=== PATIENT | female | born 1940 | race American Indian/Alaskan Native ===

== ENCOUNTER 2020-08-25 23:12 | Emergency (ER) | payer MEDICARE ==
[2020-08-25] MEDS ORDERED: ASPIRIN 325 MG TAB PO ONE (23:47)
--- NOTE | 2020-08-26 00:13 | XRay Report ---
CHEST 1 VIEW INDICATION / CLINICAL INFORMATION: Chest Pain. COMPARISON: 09/29/2012 FINDINGS: SUPPORT DEVICES: None. HEART / MEDIASTINUM: No significant abnormality. LUNGS / PLEURA: No significant pulmonary or pleural abnormality. No pneumothorax. ADDITIONAL FINDINGS: No significant additional findings. IMPRESSION: 1. No acute findings. No interval change. Signer Name: Fior Marcelino MD Signed: 08/26/2020 12:09 AM Workstation Name: [id number]
[2020-08-26 00:43] LABS: Basophils % (Auto) 0.1 % (0.0-1.8); Hematocrit 36.6 % (30.3-42.9); Hemoglobin 12.1 gm/dl (10.1-14.3); Lymphocytes # (Auto) 0.5 K/mm3 (1.2-5.4); Lymphocytes % (Auto) 4.5 % (13.4-35.0); Mean Corpuscular HGB Conc 33 % (30-34); Mean Corpuscular Volume 81 fl (79-97); Monocytes # (Auto) 0.5 K/mm3 (0.0-0.8); Monocytes % (Auto) 5.5 % (0.0-7.3); Platelet Count 235 K/mm3 (140-440); Red Cell Distribution Width 15.8 % (13.2-15.2)
[2020-08-26 01:03] LABS: BUN/Creatinine Ratio 24; Blood Urea Nitrogen 31 mg/dL (7-17); Calcium 9.3 mg/dL (8.4-10.2); Hemolysis Index 6
--- NOTE | 2020-08-26 02:21 | Emergency Department Report ---
ED Asthma HPI - General Chief Complaint: Chest Pain Stated Complaint: CHEST PAIN PUI?: No Time Seen by Provider: 08/26/20 02:11 Source: patient Mode of arrival: Ambulatory Limitations: No Limitations - History of Present Illness Initial Comments: CC: I could not breathe. HPI: Mrs. Temple is a 80 yo female with hx of asthma, GERD, HTN who presents with trouble breathing for one week. Seen several times by her PCP Dr. Ryan Rascon. She takes albuterol nebs at home. She recently was prescribed ?Advair, Prednisone, HCTZ, azithromycin. She has congestion center of chest. At night, she has a hard time getting in a deep breath. She was scared. She took 3 treatments of Albuterol just prior to coming to ED. She denies chest pain or cough. She was unable to use ADvair. She did not know how to use that medication. MD Complaint: shortness of breath -: Gradual, week(s) (1) Severity: mild Context: none known Associated Symptoms: none - Related Data Previous Rx's Medication Instructions Recorded Last Taken Type Potassium Chloride [K-Dur] 10 meq PO QDAY 30 Days #30 tablet 08/26/20 Unknown Rx Allergies Allergy/AdvReac Type Severity Reaction Status Date / Time No Known Allergies Allergy Unverified 08/25/20 23:47 ED Review of Systems ROS: Stated complaint: CHEST PAIN Other details as noted in HPI Comment: All other systems reviewed and negative Constitutional: denies: fever, malaise Respiratory: shortness of breath. denies: cough, wheezing Cardiovascular: denies: chest pain Gastrointestinal: denies: abdominal pain, nausea, vomiting ED Past Medical Hx - Past Medical History Previous Medical History?: Yes Hx Hypertension: Yes Hx GERD: Yes Hx Asthma: Yes Additional medical history: High Cholesterol - Surgical History Past Surgical History?: No - Social History Smoking Status: Never Smoker Substance Use Type: None - Medications Home Medications: Home Medications Medication Instructions Recorded Confirmed Last Taken Type Potassium Chloride [K-Dur] 10 meq PO QDAY 30 Days #30 tablet 08/26/20 Unknown Rx ED Physical Exam - General Limitations: No Limitations General appearance: alert, in no apparent distress, other (Appears well, talkative, energetic, brisk ambulation to treatment room, looks younger than her stated age) - Head Head exam: Present: atraumatic, normocephalic - Eye Eye exam: Present: normal appearance - ENT ENT exam: Present: mucous membranes moist - Neck Neck exam: Present: normal inspection, full ROM - Respiratory Respiratory exam: Present: normal lung sounds bilaterally. Absent: respiratory distress, wheezes, rales, rhonchi, chest wall tenderness, accessory muscle use, decreased breath sounds, prolonged expiratory - Cardiovascular Cardiovascular Exam: Present: regular rate, normal rhythm, normal heart sounds. Absent: systolic murmur, diastolic murmur, rubs, gallop - GI/Abdominal GI/Abdominal exam: Present: soft, normal bowel sounds. Absent: distended, tenderness, guarding, rebound - Extremities Exam Extremities exam: Present: normal inspection - Neurological Exam Neurological exam: Present: alert, oriented X3 - Psychiatric Psychiatric exam: Present: normal affect, normal mood - Skin Skin exam: Present: warm, dry, intact, normal color. Absent: rash ED Course Vital Signs 08/25/20 23:30 Temperature 98.7 F Pulse Rate 76 Respiratory 20 Rate Blood Pressure 138/57 O2 Sat by Pulse 99 Oximetry ED Medical Decision Making - Lab Data Result diagrams: 08/26/20 00:14 08/26/20 00:14 Laboratory Results - last 24 hr 08/26/20 08/26/20 00:14 00:14 WBC 9.9 RBC 4.50 Hgb 12.1 Hct 36.6 MCV 81 MCH 27 L MCHC 33 RDW 15.8 H Plt Count 235 Lymph % (Auto) 4.5 L [place] % (Auto) 5.5 Eos % (Auto) 0.0 Baso % (Auto) 0.1 Lymph # (Auto) 0.5 L [place] # (Auto) 0.5 Eos # (Auto) 0.0 Baso # (Auto) 0.0 Seg Neutrophils % 89.9 H Seg Neutrophils # 8.9 H Sodium 138 Potassium 3.2 L Chloride 99.5 Carbon Dioxide 23 Anion Gap 19 BUN 31 H Creatinine 1.3 H Estimated GFR 48 BUN/Creatinine Ratio 24 Glucose 140 H Calcium 9.3 Troponin T < 0.010 - EKG Data -: EKG Interpreted by Ne EKG shows normal: sinus rhythm, axis, intervals, QRS complexes, ST-T waves Rate: normal - EKG Data Interpretation: normal EKG - Radiology Data Radiology results: report reviewed Chest radiograph: No acute findings according to radiology impression - Medical Decision Making This is a 80-year-old female with history of hypertension, GERD asthma presents with shortness of breath. She states that she just cannot get a deep breath in especially at night. She was treated appropriately by PCP with Advair, prednisone, azithromycin. I recommended taking Advair Diskus to her PCPs office for instruction. There is likely mild discomfort with GERD. No indication of pulmonary edema CHF or ACS. EKG chest radiograph CBC chemistry troponin all within normal limits. With exception of mild hypokalemia. I have prescribed potassium chloride tablets. Patient is discharged home. Critical care attestation.: If time is entered above; I have spent that time in minutes in the direct care of this critically ill patient, excluding procedure time. ED Disposition Clinical Impression: Asthma, GERD (gastroesophageal reflux disease), Dyspnea, Hypokalemia Disposition: DC-01 TO HOME OR SELFCARE Is pt being admited?: No Does the pt Need Aspirin: No Condition: Stable Instructions: Asthma (ED) Prescriptions: Potassium Chloride [K-Dur] 10 meq PO QDAY 30 Days #30 tablet Referrals: RYAN RASCON MD [Staff Physician] - 2-3 Days
[2020-08-26 02:57] VITALS: BP 151/50
== END 2020-08-26 02:50 | disposition home or self-care (01) ==
LOC: ED 23:12
DX: J45.909 Unspecified asthma, uncomplicated (principal); K21.9 Gastro-esophageal reflux disease without esophagitis; E87.6 Hypokalemia; I10 Essential (primary) hypertension; E78.00 Pure hypercholesterolemia, unspecified; Z79.899 Other long term (current) drug therapy
CPT/HCPCS: 36415; 71045; 80048; 84484; 85025; 93005; 99283

== ENCOUNTER 2020-10-15 20:37 | Emergency (ER) | payer MEDICARE ==
[2020-10-15 21:43] VITALS: BP 102/46
[2020-10-15] MEDS ORDERED: ASPIRIN 325 MG TAB PO ONE (21:44)
--- NOTE | 2020-10-15 22:35 | XRay Report ---
CHEST 2 VIEWS INDICATION / CLINICAL INFORMATION: Chest Pain. COMPARISON: 08/26/2020 FINDINGS: SUPPORT DEVICES: None. HEART / MEDIASTINUM: Stable. LUNGS / PLEURA: No confluent infiltrates or pleural effusions. No pneumothorax. Small 7 mm noncalcifi ed nodule left upper lobe. ADDITIONAL FINDINGS: No significant additional findings. IMPRESSION: 1. No acute findings. 2. 7 mm noncalcified left upper lobe pulmonary nodule. Nonemergent noncontrast CT chest recommendatio n is below. INCIDENTAL PULMONARY NODULE RECOMMENDATIONS Nodule size* 4 mm * Low-Risk Patient: no follow-up needed * High-Risk Patient: follow-up at 12 months; if unchanged, no further follow-up Nodule size >4-6 mm * Low-Risk Patient: follow-up at CT at 12 months; if unchanged, no further follow-up * High-Risk Patient: initial follow-up CT at 6-12 months, then at 18-24 months if no change Nodule size >6-8 mm * Low-Risk Patient: initial follow-up CT at 6-12 months, then at 18-24 months if no change * High risk Patient: initial follow-up CT at 3-6 months, then at 9-12 and 24 months if no change Nodule size >8 mm * Same for Low- or High-Risk Patient: follow-up CT at around 3, 9, and 24 months, dynamic contrast e nhanced CT, PET, and/or biopsy Note Newly detected indeterminate nodule in persons 35 years of age or older. Persons under the age of 35 should not receive follow-up unless there is a known primary cancer. Low-Risk Patient - minimal or absent history of smoking and of other known risk factors. High-Risk Patient - history of smoking or of other known risk factors. * Average of length and width The risk of malignancy in this category (<1%) is substantially less than that in a baseline CT scan of an asymptomatic smoker. Nonsolid (ground-glass) or partly solid nodules may require longer follow-up to exclude indolent Cherise nocarcinoma. Signer Name: John Booth MD Signed: 10/15/2020 10:31 PM Workstation Name: [id number]
[2020-10-15 23:05] LABS: Basophils % (Auto) 0.2 % (0.0-1.8); Eosinophils % (Auto) 0.6 % (0.0-4.3); Hematocrit 30.2 % (30.3-42.9); Hemoglobin 10.1 gm/dl (10.1-14.3); Lymphocytes # (Auto) 1.4 K/mm3 (1.2-5.4); Mean Corpuscular HGB Conc 33 % (30-34); Mean Corpuscular Volume 83 fl (79-97); Monocytes # (Auto) 0.4 K/mm3 (0.0-0.8); Monocytes % (Auto) 9.2 % (0.0-7.3); Platelet Count 175 K/mm3 (140-440); Red Blood Count 3.65 M/mm3 (3.65-5.03); Red Cell Distribution Width 17.3 % (13.2-15.2)
[2020-10-15 23:22] LABS: BUN/Creatinine Ratio 9; Blood Urea Nitrogen 9 mg/dL (7-17); Calcium 9.6 mg/dL (8.4-10.2); Hemolysis Index 3
== END 2020-10-15 21:44 | disposition left against medical advice (07) ==
LOC: ED 20:37
DX: R06.02 Shortness of breath (principal); Z53.21 Procedure and treatment not carried out due to patient leaving prior to being seen by health care provider
CPT/HCPCS: 36415; 71046; 80048; 84484; 85025; 93005